=== PATIENT | female | born 1990 | race Caucasian/White ===

== ENCOUNTER 2025-03-20 18:05 | Emergency (ER) | payer OTHER ==
[~2025-03-20] VITALS: Ht 165.1 cm; Wt 73.0 kg
[2025-03-20 18:07] VITALS: O2SAT 99
[2025-03-20] MEDS: SODIUM CHLORIDE 0.9% 1,000 ML IV ONE (18:33)
[2025-03-20 18:44] LABS: BASOPHILS % 0.7 % (0.0-2.0); EOSINOPHILS % 1.2 % (0.0-5.0); HEMATOCRIT. 38.7 % (36.0-48.0); HEMOGLOBIN. 12.7 g/dL (12.0-16.0); LYMPHOCYTES % 45.1 % (20.0-50.0); MEAN PLATELET VOLUME 7.5 fl (7.4-10.4); MONOCYTES % 6.1 % (2.0-8.0); NEUTROPHILS % 46.9 % (40.0-76.0); PLATELET 443 x1000/uL (130-400); RED BLOOD CELL COUNT 4.44 mill/uL (4.2-5.4); RED CELL DISTRIBUTION WIDTH 15.1 % (11.6-14.6)
[2025-03-20 18:46] LABS: HCG SCREEN NEGATIVE
[2025-03-20 18:49] LABS: CREATININE 0.6 mg/dL (0.6-1.0); UREA NITROGEN BLOOD < 5 mg/dL (9-23)
[2025-03-20 19:05] LABS: ETHANOL BLOOD 350 mg/dL (<10)
[2025-03-20] MEDS: CALCIUM GLUCONATE 1GM PREMIX 50 ML IV SCH (20:55)
[2025-03-20] MEDS: POTASSIUM CHLORIDE 20MEQ/PACKET PO SCH (20:55)
[2025-03-20 22:55] VITALS: BP 118/78; PULSE 94; RESP 18; TEMP 36.5; O2SAT 99
== END 2025-03-20 23:00 | disposition home or self-care (01) ==
LOC: ER 18:05 → CMPBEDREQ 03-22 07:39
DX: F10.129 Alcohol abuse with intoxication, unspecified (principal); J45.909 Unspecified asthma, uncomplicated; Y90.9 Presence of alcohol in blood, level not specified
CPT/HCPCS: 80048; 80320; 84703; 85025; 36415; 96361; 96365; 99285; J0612; J7030; Z7610 ×2; A4615; A4606; G0480